=== PATIENT | female | born 1995 | race Two or more races ===

== ENCOUNTER 2024-05-23 09:21 | Emergency (ER) | payer MEDICAID ==
[~2024-05-23] VITALS: Ht 149.9 cm; Wt 57.2 kg
[2024-05-23] MEDS ORDERED: ACETAMINOPHEN ES 500 MG TABLET ONE (10:05)
[2024-05-23] MEDS: ACETAMINOPHEN ES 500 MG TABLET PO ONE (10:08)
[2024-05-23 11:18] VITALS: BP 117/68; TEMP 98; O2SAT 99
== END 2024-05-23 11:19 | disposition home or self-care (01) ==
LOC: ER 09:35
DX: O26.892 Other specified pregnancy related conditions, second trimester (principal); M54.50 Low back pain, unspecified; Z60.2 Problems related to living alone; Z3A.21 21 weeks gestation of pregnancy
CPT/HCPCS: 76805-TC

== ENCOUNTER 2024-06-09 00:33 | Emergency (ER) | payer MEDICAID ==
[~2024-06-09] VITALS: Ht 149.9 cm; Wt 55.8 kg
[2024-06-09 02:17] LABS: APPEARANCE,URINE CLEAR (CLEAR); BILIRUBIN,URINE NEGATIVE (NEGATIVE); BLOOD, URINE 3+ Ery/uL (NEGATIVE); COLOR,URINE YELLOW (YELLOW); KETONES,URINE NEGATIVE (NEGATIVE); LEUKOCYTE ESTERASE ,URINE TRACE (NEGATIVE); NITRITE, URINE NEGATIVE (NEGATIVE); PROTEIN,URINE NEGATIVE (NEGATIVE); UGLUCOSE NEGATIVE (NEGATIVE); UROBILINOGEN,URINE 0.2 EU/dL (0.2)
[2024-06-09 02:28] LABS: BASOPHILS % (AUTO) 0.1 % (0.0-2.0); EOSINOPHILS # (AUTO) 0.3 K/uL (0.0-0.7); EOSINOPHILS % (AUTO) 2.6 % (0.0-6.0); HEMATOCRIT 33 % (33-45); HEMOGLOBIN 10.7 g/dL (11.5-14.8); LYMPHOCYTES # (AUTO) 2.8 K/uL (0.8-4.8); LYMPHOCYTES % (AUTO) 26.5 % (20.0-44.0); MEAN CORPUSCULAR HEMOGLOBIN 29 PG (26.0-33.0); MEAN CORPUSCULAR HGB CONC 32 g/dl (31.0-36.0); MEAN CORPUSCULAR VOLUME 89 fL (82-100); MONOCYTES # (AUTO) 1.1 K/uL (0.1-1.30); MONOCYTES % (AUTO) 10.2 % (2.0-12.0); NEUTROPHILS # (AUTO) 6.5 K/uL (1.8-8.9); NEUTROPHILS % (AUTO) 60.6 % (43.0-81.0); PLATELET COUNT (AUTO) 289 K/uL (150-450); RED BLOOD CELL COUNT(AUTO) 3.73 MIL/uL (4.0-5.2); RED CELL DISTRIBUTION WIDTH 14.2 % (11.5-15.0); WHITE BLOOD COUNT (AUTO) 10.7 K/uL (4.3-11.0)
[2024-06-09 02:55] LABS: ADD URINE CULTURE YES; BACTERIA,URINE 2+ /HPF (None Seen); WBC,URINE 0-2 /HPF (0-3)
[2024-06-09 05:29] VITALS: BP 120/70; TEMP 98; O2SAT 98
== END 2024-06-09 05:29 | disposition home or self-care (01) ==
LOC: ER 00:45
DX: O26.892 Other specified pregnancy related conditions, second trimester (principal); R10.2 Pelvic and perineal pain; Z79.899 Other long term (current) drug therapy; Z3A.24 24 weeks gestation of pregnancy
CPT/HCPCS: 36415; 76805-TC; 81001; 84702-TC; 85025-TC; 87086-TC